=== PATIENT | male | born 1955 | race Caucasian/White ===

== ENCOUNTER → 2024-09-03 08:55 | Outpatient (CLI) | payer MEDICARE, OTHER, SELFPAY ==
--- NOTE | 2024-09-03 | DI.MRI.S_ITS ---
PROCEDURE: MR KNEE RT WO CON INDICATIONS: TEAR OF MEDIAL MENISCUS RT KNEE TECHNIQUE: Noncontrast sagittal PD fast spin echo and T2 fast spin echo with fat saturation, sagittal 3-D FLASH with fat saturation; coronal T1 spin echo and PD fast spin echo with fat saturation, and axial PD fast spin echo with fat saturation through the knee. COMPARISON: None. FINDINGS: Image quality: Diagnostic Menisci: Medial: Macerated body and posterior horn. Only a few fibers are seen attached at the root. There is moderate extrusion. Lateral: Small internal signal abnormality likely degenerative Cruciate ligaments: Intact Medial structures: MCL: Mild periligamentous edema and thickening Pes anserine tendons: Mild bursal edema Semimembranosus: Iahn-av-hojjepjf insertional tendinopathy Lateral structures: LCL: Mild edema at the origin Biceps femoris: Intact IT band: Intact Popliteus tendon: Mild insertional tendinopathy Anterior structures: Extensor mechanism: Intact Fat pads: Moderate prepatellar edema. Mild edema also seen in Hoffa's fat pad Medial retinaculum: Intact. Trochlea: Unremarkable morphology. Bone and joint: Bones: No displaced fracture. Moderate focal edema however is seen at the medial femoral condyle. Cartilage: Full-thickness cartilage loss throughout the medial compartment with subchondral edema. Moderate cartilage loss also seen in the lateral and patellofemoral compartments, without significant subchondral edema Joint space: Wsta-ei-cuhmjiqv effusion Bartlett's cyst: Moderate Bartlett's cyst with evidence of rupture Soft tissues: No significant vascular or other soft tissue pathology. IMPRESSION: Macerated body and posterior horn of the medial meniscus. Only a few fibers are seen attached at the root. There is moderate extrusion. Sprains of the collateral ligaments. Intact cruciate ligaments. Focal moderate edema at the weight-bearing surface of the femoral condyle likely low-grade or subacute insufficiency fracture. Complete cartilage loss throughout the medial compartment with superimposed subchondral edema. 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 Lbca-ee-irmwsoma joint effusion. Moderate ruptured Bartlett's cyst Moderate prepatellar edema. Mild Hoffa's fat pad edema. Mild edema of the popliteus insertion and posteromedial corner structures. Dictated by: Amarjit Boone M.D. on 09/04/2024 at 11:27 Approved by: Amarjit Boone M.D. on 09/04/2024 at 11:32
== END ==
PROVIDERS: PCP Internal Medicine; Referring Provider Orthopaedic Surgery; Visit Provider Orthopaedic Surgery
DX: S83.241A Other tear of medial meniscus, current injury, right knee, initial encounter (principal); S83.411A Sprain of medial collateral ligament of right knee, initial encounter; S83.421A Sprain of lateral collateral ligament of right knee, initial encounter; M71.21 Synovial cyst of popliteal space [Baker], right knee; M22.41 Chondromalacia patellae, right knee; M25.461 Effusion, right knee; X58.XXXA Exposure to other specified factors, initial encounter
CPT/HCPCS: 73721

== ENCOUNTER → 2024-09-22 08:49 | Outpatient (CLI) | payer MEDICARE, OTHER, SELFPAY ==
--- NOTE | 2024-09-22 10:03 | EKG_ITS ---
[address] [address] Test Date: 2024-09-22 Pat Name: Ovi Norman Department: [facility] Room: Gender: Male User Experience Designer: CL : [id number] Requested By: Order Number: [id number] Reading MD: Juancarlos Bradley MD Measurements Intervals [place] Rate: 75 P: 65 TN: 232 QRS: -4 QRSD: 82 T: 56 QT: 368 QTc: 410 Interpretive Statements Sinus rhythm with 1st degree AV block Electronically Signed On 09-22-2024 10:54:42 PDT by Juancarlos Bradley MD
[2024-09-22 10:10] LABS: Appearance Urine UA CLEAR; Bilirubin Urine UA NEGATIVE (NEGATIVE); Color Urine UA YELLOW; Glucose Urine UA NEGATIVE (Negative); Ketones Urine UA NEGATIVE (NEGATIVE); Leukocyte Esterase Urine UA NEGATIVE (NEGATIVE); Nitrite Urine UA NEGATIVE (Negative); Occult Blood Urine UA NEGATIVE (Negative); Protein Urine UA NEGATIVE (Negative); Specific Gravity Urine UA 1.015 (1.000-1.035); Urobilinogen Urine UA 0.2 E.U./dL (0.2)
[2024-09-22 10:14] LABS: Bacteria Urine None Seen; Culture Indicated Urine Cult Not Indicated; RBC Urine None Seen (0-5/HPF); Squamous Epithelial Cell Urine None Seen (0-5/HPF); Urine Volume 10mL (spun); WBC Urine None Seen (0-5/HPF)
[2024-09-22 10:20] LABS: Add Manual Diff / Slide Review NO; Basophils Absolute Auto 0 /uL (0-100); Basophils Percent Auto 0.5 % (0-2); Eosinophils Absolute Auto 200 /uL (0-450); Eosinophils Percent Auto 2.4 % (2-4); Hematocrit 43.6 % (41-53); Hemoglobin 14.7 g/dL (13.5-17.5); Lymphocytes Absolute Auto 1700 /uL (1100-4500); Lymphocytes Percent Auto 23.8 % (25-40); Mean Corpuscular HGB Conc 33.7 % (30-36); Mean Corpuscular Hemoglobin 29.1 PG (26-34); Mean Corpuscular Volume 86.4 fL (80-100); Monocytes Absolute Auto 600 /uL (0-900); Monocytes Percent Auto 8.1 % (3-14); Neutrophils Absolute Auto 4800 /uL (1500-7000); Neutrophils Percent Auto 65.2 % (50-75); Platelet Count 198 X10^3/uL (150-400); Red Blood Cell Count 5.04 X10^6/uL (4.5-5.9); Red Cell Distribution Width 14.6 % (11.6-14.8); White Blood Cell Count 7.3 X10^3/uL (4.5-11.0)
[2024-09-22 10:27] LABS: Hemoglobin A1C% w Est Avg Glu 5.4 % (4.0-6.0)
[2024-09-22 10:41] LABS: BUN Creatinine Ratio 20.4 (6-22); Blood Urea Nitrogen 19 mg/dL (9-20); Calcium 9.8 mg/dL (8.4-10.2); Carbon Dioxide 26 mmol/L (22-32); Chloride 103 mmol/L (98-107); Estimated Glomerular Filt Rate > 60 mL/min (>60); Glucose 116 mg/dL (70-99); HEMOLYSIS < 15 (0-50); Potassium 4.8 mmol/L (3.4-5.1); Sodium 139 mmol/L (137-145)
== END ==
PROVIDERS: PCP Internal Medicine; Referring Provider Orthopaedic Surgery; Visit Provider Orthopaedic Surgery
DX: Z01.818 Encounter for other preprocedural examination (principal); R73.9 Hyperglycemia, unspecified; Z01.812 Encounter for preprocedural laboratory examination; N39.0 Urinary tract infection, site not specified
CPT/HCPCS: 36415; 80048; 81001; 83036; 85025; 93005; 93010